=== PATIENT | female | born 1940 | race Caucasian/White ===

== ENCOUNTER 2023-09-02 22:26 | Emergency (ER) | payer OTHER, SELFPAY ==
[2023-09-02 22:28] VITALS: BP 110/66
[2023-09-02 22:30] VITALS: BP 110/66
--- NOTE | 2023-09-02 23:02 | ED.GENMED ---
History of Present Illness
General
Chief Complaint: Fall
Source: patient and ambulance crew
Exam Limitations: none
Time Seen by Provider: 09/02/23 22:32
Nursing documentation reviewed up to this point in time: agreed with
History of Present Illness
History of Present Illness:
Pleasantly demented 82-year-old female presents after a fall. Fall was unwitnessed. Patient sustained a 5 cm laceration above her right eyebrow. Patient denies loss of consciousness. She does have a history of dementia so history is limited.
Past History
Past History
ED Past Medical History: Other (Dementia)
Social History
Tobacco: Non-smoker
Living: [facility]
Employment: Disabled
Review of Systems
Review of Systems
Allergies reviewed?: Yes
Unable to obtain full review of systems at this time due to: dementia
Skin: Reports other (Laceration)
Phy Exam
General Physical Exam
General Presentation: well appearing
General age: appears stated age
General Skin: warm and dry
General Habitus: elderly and frail
General Mental: confused and usual mental status
General Hydration: appears well hydrated
Pulmonary Exam
Pulmonary Exam: lungs clear and no respiratory distress
Musculoskeletal Exam
Musculoskeletal Exam: full ROM and no edema
Skin Exam
Skin Exam: laceration
Psychiatric Exam
Psychiatric Exam: agitated
Course
Orders/Labs/Results
Orders:
Orders
09/02/23 22:27
CT Head W/o Iv Contrast Urgent
Comment:
Reason For Exam: fall/headstrike/ASA
09/02/23 22:28
Cervical Spine wo Contrast CT [CT Cervical Spine W/o Iv Contr] Urgent
Comment:
Reason For Exam: fall/headstrike
Vital Signs
Initial and Last Documented VS:
Initial Vital Signs
Temp Pulse Resp BP Pulse Ox
97.9 F 77 19 110/66 93
09/02/23 22:28 09/02/23 22:28 09/02/23 22:28 09/02/23 22:28 09/02/23 22:28
Last Documented Vital Signs
Temp Pulse Resp BP Pulse Ox
97.9 F 77 19 110/66 92
09/02/23 22:28 09/02/23 22:28 09/02/23 22:28 09/02/23 22:30 09/02/23 22:31
Procedures
Laceration Closure
Right Eye brow:
Status of Wound: clean
Size of Wound in cm: 5
Description of Wound Edges: sharp and flap-well vascularized
Preparation: cleaned with soap & water and cleaned with saline
Anesthesia: 1% Lidocaine
Revision/Debridement: routine- no revision
Wound exploration: explored to base- no FB
Type of Closure: single layer closure
Skin Closure Material: 5-0 nylon
Number of sutures: 7
Additional information:
Eyebrow approximated. Patient tolerated procedure well with no immediate adverse effects.
*Radiology
Radiology exam reviewed: radiology read reviewed
*Pulse Oximetry
Patient hypoxic: no
*Critical Care Note
Total Time (30-74mins, 75-104mins- exclusive of procedures): Not Applicable
Patient Management
Social determinants of health affecting care: Strong social support
Update Note
Update Note:
Scanning parameters: CT of the head without intravenous contrast material was obtained. Automated exposure control was used.
INDICATION: Head trauma
Comparison examination: None
FINDINGS:
There are no acute abnormalities.
There is no intracranial hemorrhage.
There is no edema or mass effect to suggest neoplasm.
There are no abnormal extra-axial fluid collections.
There are no focal areas of diminished density to suggest infarct.
There is diffuse cortical atrophy as evidenced by prominence of the CSF spaces.
Additionally, there are patchy areas of low density in the periventricular and subcortical white matter bilaterally. These white matter changes are nonspecific but given the patient's age are most likely ischemic or degenerative in origin. Such
white matter changes are often seen in older individuals and typically do not correlate clinically.
Imaging of the cranial vault demonstrates no fracture
IMPRESSION:
There are no acute intracranial abnormalities.
There is moderate diffuse cortical atrophy with moderate nonspecific white matter changes as described above.
Electronically signed by Wale Young MD, 09/02/2023 10:59 PM
ED Attending Note
-
Portions of this chart may have been created with voice recognition software.� Occasional wrong word or��sound alike� substitutions may have occurred due to the inherent limitations of voice recognition software.
Discharge Plan
Departure
Patient Disposition: Prison/SNF
Date of Disposition: 09/03/23
Time of Disposition: 00:24
Patient with high blood pressure during this ER visit?: No
Condition: Good
Discharge Problem:
Fall, Facial laceration
Instructions: Laceration Repair With Stitches (DC), Wound Care (DC)
Prescriptions:
No Action
acetaminophen 325 mg Tablet
650 mg PO Q6H PRN (Reason: mild pain)
acetaminophen 325 mg Tablet
650 mg PO Q8H PRN (Reason: mild pain)
trazodone 50 mg Tablet
50 mg PO HS
dextromethorphan-guaifenesin [Tussin DM] 10-100 mg/5 mL Syrup
10 ml PO DAILY
aspirin 81 mg Tablet,Delayed Release (Dr/Ec)
81 mg PO DAILY
simvastatin 40 mg Tablet
40 mg PO HS
magnesium hydroxide [Milk of Magnesia] 400 mg/5 mL Suspension
30 ml PO HS PRN (Reason: if no bm in 3 days)
bisacodyl [Dulcolax (bisacodyl)] 10 mg Suppository
10 mg GA DAILY PRN (Reason: if no results for MOM)
Referrals:
Jose Miguel Hernandes I., DO [Family Provider] -
Activity Restrictions/Additional Instructions:
Sutures can be removed in 5 to 7 days.
It was a pleasure meeting you and taking part in your care. We hope for your continued healing and wellness.
Please read discharge instructions in their entirety. However, they are for general education and may not describe your exact diagnosis at discharge. Information on your ER visit and medical conditions were discussed with you along with appropriate
follow up information...
If indicated, please take your medications as instructed and indicated on discharge paperwork.
Please schedule a follow up appointment as directed. Call to schedule an appointment
Please return to the emergency department with ANY change in, persisting, or worsening of symptoms. If any of your symptoms do not improve, or persist, or become more severe within 6-12 hours, please return to the emergency department for further
care.
Please return to the emergency department if you develop a headache, neck pain/stiffness, fever greater than 100.4F, chest pain, shortness of breath, persistent nausea, vomiting, slurred speech, difficulty walking, numbness/tingling, weakness, signs
of infection or any other symptoms that are worrisome to you.
If you have any questions or concerns please do not hesitate to call the Hospital at or E-mail me directly at [email or web address]
Interventions
Interventions:
*Risk Screen - Suicide Last Done: 09/02/23 22:28
*General Assessment Last Done: 09/02/23 22:28
*Neglect/Abuse Screening Last Done: 09/02/23 22:28
*ED COVID-19 Vaccine History Last Done: 09/02/23 22:28
Discharge Date and Time
Print Language: BENINESE
== END 2023-09-03 02:04 ==
LOC: EMR 22:26
PROVIDERS: EMERGENCY PHYSICIAN Student in an Organized Health Care Education/Training Program; FAMILY PHYSICIAN Internal Medicine
DX: S01.81XA Laceration without foreign body of other part of head, initial encounter (principal); W19.XXXA Unspecified fall, initial encounter; F03.90 Unspecified dementia, unspecified severity, without behavioral disturbance, psychotic disturbance, mood disturbance, and anxiety
CPT/HCPCS: 99284; 70450; 72125